=== PATIENT | female | born 1950 | race Caucasian/White ===

== ENCOUNTER 2016-04-14 15:31 | Inpatient (IN) | payer OTHER ==
[~2016-04-14] VITALS: Ht 162.6 cm; Wt 114.8 kg
[~2016-04-14 15:31] MED LIST: ADULT LOW DOSE81 M1 PO; ADVAIR 250/501 DISK IH; ADVAIR 500/501 DISK IH; AMARYL4 MG PO; AMBIEN10 MG PO; AMBIEN5 MG PO; ASPIR 8181 MG PO; ASPIR-LOW81 MG PO; ASPIRIN E.C.81 M1 PO; ATORVASTATIN CA80 MG PO; AVELOX400 MG PO; AZITHROMYCIN500 M1 PO; Ambien PO; B-123000 MCG SL; BUSPAR5 MG PO; BUSPIRONE HCL5 MG PO; CALCIUM +D & M1 EAC1 PO; CALCIUM 500 +1 EACH PO; CALCIUM PO; CEFADROXIL1 GM PO; CEFTIN500 MG PO; CEFUROXIME500 MG PO; CELEXA40 MG PO; CLINDAMYCIN HC300 MG PO; CYANOCOBALAM1000 MCG PO; CYMBALTA60 MG PO; Citracal PO; DELTASONE10 MG PO; DESYREL12.5 MG PO; DIAZEPAM5 MG PO; ENDOCET 5-3251 EACH PO; FLUOXETINE HCL40 MG PO; FORTAMET500 M1 PO; FUROSEMIDE40 MG PO; GABAPENTIN600 MG PO; GLIMEPIRIDE2 MG PO; GLIMEPIRIDE4 MG PO; GLUCOPHAGE1000 MG PO; GLUCOPHAGE500 MG PO; HABITROL,NICODE21 MG TD; INCRUSE ELLI62.5 MCG IH; LASIX40 MG PO; LEVOFLOXACIN750 MG PO; LIDODERM 5% P1 PATCH TD; LIPITOR80 MG PO; LORTAB 5-325 M1 EACH PO; LYRICA75 MG PO; Lopid PO; METFORMIN HCL1000 MG PO; METFORMIN HCL500 MG PO; MYCOSTATIN15 GM TP; NABUMETONE750 MG PO; NASONEX17 GM BOTH NARES; NOVOLOG PE100 UNITS/ SC; NYSTATIN-TRIAMC15 GM TP; NYSTATIN15 GM TP; Neurontin PO; OMEPRAZOLE20 MG PO; OMEPRAZOLE40 M1 PO; ONE-A-DAY ESSE1 EAC1 PO; PERCOCET 5/31 TABLET PO; PERCOCET 7.51 TABLET PO; PRAVACHOL80 MG PO; PREDNISONE10 MG PO; PREDNISONE20 MG PO; PRILOSEC20 MG PO; PRILOSEC40 MG PO; PROAIR HFA8.5 GM IH; PROVENTIL HFA6.7 GM IH; PROVENTIL,2.5 MG/0.5 IH; PROVENTIL,2.5 MG/3 M IH; PROZAC40 MG PO; Prilosec PO; RELAFEN750 MG PO; ROBAXIN500 MG PO; Relafen PO; SPIRIVA1 INHALATI IH; TRAZODONE HCL50 MG PO; TRIAMCINOLONE A15 GM TP; TYLENOL EXTRA500 MG PO; VALIUM5 MG PO; VITAMIN D32000 UNIT PO; VITAMIN D35000 UNIT PO; VITAMIN D5000 INTUN PO; VITAMIN D5000 UNI1 PO; VITAMIN D5000 UNIT PO; VITAMIN D50000 UNI1 PO; ZESTRIL,PRINIVI40 M1 PO; ZESTRIL40 MG PO; ZESTRIL5 MG PO; ZOCOR20 MG PO; Zocor PO
[2016-04-14 16:08] LABS: HEMATOCRIT 38.3 % (36.0-46.0); MCH 27.4 PG (29.0-34.0); MCHC 32.1 G/DL (30.0-36.0); MCV 85.3 FL (83-99); MEAN PLAT.VOLUME 10.8 uM^3 (9.5-12.4); PLATELET COUNT 291 K/uL (156-360); RBC DIS.WIDTH-CV 16.3 % (11.8-14.6); RBC DIS.WIDTH-SD 50.8 % (39-53); RED BLOOD COUNT 4.49 M/uL (3.80-5.20); WHITE BLOOD COUNT 16.7 K/uL (4.1-10.2)
[2016-04-14 16:14] LABS: BASOPHIL COUNT 0.1 K/uL (0-0.1); EOSINOPHIL (%) 2.5 % (0-5); EOSINOPHIL COUNT 0.4 K/uL (0-0.3); IMMATURE GRANULOCYTE (%) 0.4 % (0.0-0.7); IMMATURE GRANULOCYTE COUNT 0.6 K/uL; LYMPHOCYTE COUNT 2.1 K/uL (1.0-2.8); MONOCYTE (%) 7.9 % (3-12); MONOCYTE COUNT 1.3 K/uL (0-0.8); NEUTROPHIL (%) 76.1 % (45-76); NEUTROPHIL COUNT 12.7 K/uL (1.8-6.4)
[2016-04-14 16:18] LABS: CHLORIDE 104 mEq/L (99-109); POTASSIUM 4.5 mEq/L (3.7-5.4); SODIUM 142 mEq/L (136-147)
[2016-04-14 16:19] LABS: GLUCOSE 129 mg/dL (70-99)
[2016-04-14 16:21] LABS: ANION GAP 11 MEQ/L (2-14)
[2016-04-14 16:23] LABS: GFR ESTIMATE (CALCULATED) > 59 mL/min/
[2016-04-14 16:24] LABS: UREA NITROGEN (BUN) 11 mg/dL (9-23)
[2016-04-14] MEDS ORDERED: LASIX40 MG PO (18:42)
[2016-04-14 19:07] LABS: D-DIMER ELISA 1.01 mg/L FEU (< 0.57)
[2016-04-14 21:00] VITALS: BP 130/74
[2016-04-14 21:39] LABS: POINT-OF-CARE METER ID UU14174225
[2016-04-14 21:40] VITALS: BP 132/69
[2016-04-15] VITALS (7 sets, daily range): BP systolic 116–153; BP diastolic 58–87
[2016-04-15 04:17] LABS: POINT-OF-CARE METER ID UU14174225
[2016-04-15 06:53] LABS: HEMATOCRIT 33.4 % (36.0-46.0); MCH 27.2 PG (29.0-34.0); MCHC 30.8 G/DL (30.0-36.0); MCV 88.4 FL (83-99); MEAN PLAT.VOLUME 11.2 uM^3 (9.5-12.4); PLATELET COUNT 244 K/uL (156-360); RBC DIS.WIDTH-CV 16.6 % (11.8-14.6); RBC DIS.WIDTH-SD 53.3 % (39-53); RED BLOOD COUNT 3.78 M/uL (3.80-5.20); WHITE BLOOD COUNT 14.3 K/uL (4.1-10.2)
[2016-04-15 07:16] LABS: ANION GAP 7 MEQ/L (2-14); CHLORIDE 106 MEQ/L (99-109); GFR ESTIMATE (CALCULATED) > 59 mL/min/; GLUCOSE 125 mg/dL (70-99); POTASSIUM 4.4 MEQ/L (3.7-5.4); SAMPLE HEMOLYSIS CHECK 0; SAMPLE ICTERIC CHECK 0; SAMPLE LIPEMIA CHECK 0; SODIUM 140 MEQ/L (136-147); UREA NITROGEN (BUN) 9 mg/dL (9-23)
[2016-04-15 08:13] LABS: BASOPHIL COUNT 0.1 K/uL (0-0.1); EOSINOPHIL COUNT 0.3 K/uL (0-0.3); HEMATOLOGY COMMENT 1 SMEAR COMPATIBLE; IMMATURE GRANULOCYTE (%) 0.5 % (0.0-0.7); IMMATURE GRANULOCYTE COUNT 0.1 K/uL; LYMPHOCYTE COUNT 2.5 K/uL (1.0-2.8); MONOCYTE (%) 14.3 % (3-12); MONOCYTE COUNT 2.1 K/uL (0-0.8); NEUTROPHIL (%) 65.3 % (45-76); NEUTROPHIL COUNT 9.3 K/uL (1.8-6.4); USER ID STC
[2016-04-15 11:13] LABS: POINT-OF-CARE METER ID UU14174225
[2016-04-15 16:43] LABS: POINT-OF-CARE METER ID UU14174225
[2016-04-15 20:56] LABS: POINT-OF-CARE METER ID UU14174225
[2016-04-16 04:05] VITALS: BP 110/64
[2016-04-16 07:26] VITALS: BP 126/65
[2016-04-16 07:26] LABS: ANION GAP 10 MEQ/L (2-14); CHLORIDE 103 MEQ/L (99-109); GFR ESTIMATE (CALCULATED) > 59 mL/min/; GLUCOSE 114 mg/dL (70-99); POTASSIUM 3.8 MEQ/L (3.7-5.4); SAMPLE HEMOLYSIS CHECK 0; SAMPLE ICTERIC CHECK 0; SAMPLE LIPEMIA CHECK 0; SODIUM 140 MEQ/L (136-147); UREA NITROGEN (BUN) 9 mg/dL (9-23)
[2016-04-16 07:28] LABS: HEMATOCRIT 31.6 % (36.0-46.0); MCH 26.7 PG (29.0-34.0); MCV 86.1 FL (83-99); MEAN PLAT.VOLUME 11.3 uM^3 (9.5-12.4); PLATELET COUNT 239 K/uL (156-360); RBC DIS.WIDTH-CV 16.1 % (11.8-14.6); RBC DIS.WIDTH-SD 50.4 % (39-53); RED BLOOD COUNT 3.67 M/uL (3.80-5.20); WHITE BLOOD COUNT 16.2 K/uL (4.1-10.2)
[2016-04-16 07:55] LABS: BASOPHIL COUNT 0.1 K/uL (0-0.1); EOSINOPHIL (%) 1.2 % (0-5); EOSINOPHIL COUNT 0.2 K/uL (0-0.3); IMMATURE GRANULOCYTE (%) 0.4 % (0.0-0.7); IMMATURE GRANULOCYTE COUNT 0.1 K/uL; LYMPHOCYTE COUNT 1.8 K/uL (1.0-2.8); MONOCYTE (%) 16.8 % (3-12); MONOCYTE COUNT 2.7 K/uL (0-0.8); NEUTROPHIL (%) 70.4 % (45-76); NEUTROPHIL COUNT 11.4 K/uL (1.8-6.4)
[2016-04-16 09:18] LABS: ABS NEUTROPHIL COUNT 12.81; EOSINOPHIL ABS CT 0.49; PLAT.SUFFICIENCY ADEQUATE; USER ID STC
[2016-04-16 12:00] VITALS: BP 129/66
[2016-04-16 12:18] LABS: POINT-OF-CARE METER ID UU14174225
[2016-04-16 15:59] VITALS: BP 122/70
[2016-04-16 20:00] VITALS: BP 110/58
[2016-04-17] VITALS: BP 127/65
[2016-04-17 04:00] VITALS: BP 103/73
[2016-04-17 07:20] LABS: HEMATOCRIT 29.7 % (36.0-46.0); MCH 27.1 PG (29.0-34.0); MCHC 31.3 G/DL (30.0-36.0); MCV 86.6 FL (83-99); MEAN PLAT.VOLUME 11.3 uM^3 (9.5-12.4); PLATELET COUNT 224 K/uL (156-360); RBC DIS.WIDTH-CV 16.5 % (11.8-14.6); RBC DIS.WIDTH-SD 52.3 % (39-53); RED BLOOD COUNT 3.43 M/uL (3.80-5.20); WHITE BLOOD COUNT 13.2 K/uL (4.1-10.2)
[2016-04-17 07:44] LABS: ANION GAP 8 MEQ/L (2-14); CHLORIDE 101 MEQ/L (99-109); GFR ESTIMATE (CALCULATED) > 59 mL/min/; GLUCOSE 120 mg/dL (70-99); POTASSIUM 4.1 MEQ/L (3.7-5.4); SAMPLE HEMOLYSIS CHECK 1; SAMPLE ICTERIC CHECK 0; SAMPLE LIPEMIA CHECK 0; SODIUM 135 MEQ/L (136-147); UREA NITROGEN (BUN) 13 mg/dL (9-23)
[2016-04-17 08:00] VITALS: BP 104/61
[2016-04-17 09:08] LABS: EOSINOPHIL (%) 2.6 % (0-5); EOSINOPHIL COUNT 0.4 K/uL (0-0.3); HEMATOLOGY COMMENT 1 REV; IMMATURE GRANULOCYTE (%) 0.4 % (0.0-0.7); IMMATURE GRANULOCYTE COUNT 0.1 K/uL; LYMPHOCYTE COUNT 2.1 K/uL (1.0-2.8); MONOCYTE (%) 15.2 % (3-12); NEUTROPHIL (%) 65.4 % (45-76); NEUTROPHIL COUNT 8.6 K/uL (1.8-6.4); USER ID NJR
[2016-04-17 11:59] LABS: POINT-OF-CARE METER ID UU14174225
[2016-04-17 12:00] VITALS: BP 84/56
[2016-04-17 16:09] LABS: POINT-OF-CARE METER ID UU14174225
[2016-04-17 16:21] VITALS: BP 114/61
[2016-04-17 20:04] VITALS: BP 116/63
[2016-04-18] VITALS: BP 99/52
[2016-04-18 04:00] VITALS: BP 150/69
[2016-04-18 06:05] LABS: HEMATOCRIT 32.8 % (36.0-46.0); MCH 26.6 PG (29.0-34.0); MCHC 30.8 G/DL (30.0-36.0); MCV 86.5 FL (83-99); MEAN PLAT.VOLUME 10.8 uM^3 (9.5-12.4); PLATELET COUNT 282 K/uL (156-360); RBC DIS.WIDTH-CV 16.2 % (11.8-14.6); RBC DIS.WIDTH-SD 51.6 % (39-53); RED BLOOD COUNT 3.79 M/uL (3.80-5.20); WHITE BLOOD COUNT 11.7 K/uL (4.1-10.2)
[2016-04-18 06:17] LABS: BASOPHIL COUNT 0.1 K/uL (0-0.1); EOSINOPHIL (%) 4.1 % (0-5); EOSINOPHIL COUNT 0.5 K/uL (0-0.3); IMMATURE GRANULOCYTE (%) 0.6 % (0.0-0.7); IMMATURE GRANULOCYTE COUNT 0.1 K/uL; MONOCYTE COUNT 1.3 K/uL (0-0.8); NEUTROPHIL (%) 66.3 % (45-76); NEUTROPHIL COUNT 7.8 K/uL (1.8-6.4)
[2016-04-18 06:25] LABS: ANION GAP 8 MEQ/L (2-14); CHLORIDE 101 MEQ/L (99-109); GFR ESTIMATE (CALCULATED) > 59 mL/min/; GLUCOSE 117 mg/dL (70-99); POTASSIUM 4.1 MEQ/L (3.7-5.4); SAMPLE HEMOLYSIS CHECK 0; SAMPLE ICTERIC CHECK 0; SAMPLE LIPEMIA CHECK 0; SODIUM 137 MEQ/L (136-147); UREA NITROGEN (BUN) 14 mg/dL (9-23)
[2016-04-18 07:54] VITALS: BP 113/65
[2016-04-18 11:05] VITALS: BP 109/51
[2016-04-18 12:45] LABS: POINT-OF-CARE METER ID UU14174225
[2016-04-18 15:25] VITALS: BP 125/50
[2016-04-18 20:00] VITALS: BP 138/60
[2016-04-19] VITALS: BP 143/67
[2016-04-19 04:00] VITALS: BP 134/61
[2016-04-19 07:50] VITALS: BP 151/67
[2016-04-19] MEDS ORDERED: CLINDAMYCIN HC300 MG PO (11:11)
[2016-04-19] MEDS ORDERED: FLORASTOR250 MG PO (11:11)
[2016-04-19] MEDS ORDERED: OXYCODONE HCL5 MG PO (11:11)
[2016-04-19 11:29] VITALS: BP 135/79
[2016-04-19 15:23] VITALS: BP 132/68
== END 2016-04-19 17:11 | disposition home health service (06) | DRG 871 ==
LOC: EME 15:31 → 5SOUTH 18:26 → EDOF 18:26 → 5SOUTH 20:19
PROVIDERS: Emergency Medicine; Internal Medicine
DX: A41.9 Sepsis, unspecified organism (principal); J96.01 Acute respiratory failure with hypoxia; L03.115 Cellulitis of right lower limb; J44.1 Chronic obstructive pulmonary disease with (acute) exacerbation; Z68.41 Body mass index [BMI] 40.0-44.9, adult; E66.2 Morbid (severe) obesity with alveolar hypoventilation; F17.210 Nicotine dependence, cigarettes, uncomplicated; E11.65 Type 2 diabetes mellitus with hyperglycemia; I27.2 Other secondary pulmonary hypertension; I10 Essential (primary) hypertension; E78.00 Pure hypercholesterolemia, unspecified; K21.9 Gastro-esophageal reflux disease without esophagitis; F32.9 Major depressive disorder, single episode, unspecified; F41.9 Anxiety disorder, unspecified; I70.203 Unspecified atherosclerosis of native arteries of extremities, bilateral legs; I07.1 Rheumatic tricuspid insufficiency; M85.80 Other specified disorders of bone density and structure, unspecified site
CPT/HCPCS: 71020; 71275; 73610; 73630; 73700; 80048; 80202; 81003; 82565; 82948; 83605; 84520; 85025; 85379; 87040; 93005; 93306; 93925; 93970; 94640; 94640 76; 94799; 99202; 99281; 99285; J0696; J1644; J1815; J2270; J2405; J3370; J7050

== ENCOUNTER 2016-08-14 21:28 | Emergency (ER) | payer OTHER ==
[~2016-08-14] VITALS: Ht 157.5 cm; Wt 105.9 kg
[~2016-08-14 21:28] MED LIST changes: +FLORASTOR250 MG PO; +OXYCODONE HCL5 MG PO
[2016-08-14 23:22] VITALS: BP 132/81
== END 2016-08-14 23:16 | disposition home or self-care (01) ==
LOC: EME 21:28
DX: F41.0 Panic disorder [episodic paroxysmal anxiety] (principal); F17.200 Nicotine dependence, unspecified, uncomplicated; T21.13XA Burn of first degree of upper back, initial encounter; X98.8XXA Assault by other hot objects, initial encounter; Y07.499 Other family member, perpetrator of maltreatment and neglect; F32.9 Major depressive disorder, single episode, unspecified; J44.9 Chronic obstructive pulmonary disease, unspecified; I10 Essential (primary) hypertension; K21.9 Gastro-esophageal reflux disease without esophagitis; E11.40 Type 2 diabetes mellitus with diabetic neuropathy, unspecified; G89.29 Other chronic pain
CPT/HCPCS: 99281; 99283

== ENCOUNTER 2016-08-21 21:50 | Emergency (ER) | payer OTHER ==
[~2016-08-21] VITALS: Ht 157.5 cm; Wt 105.9 kg
[2016-08-21] MEDS ORDERED: NORCO 5/3251 TABLET PO (23:27)
[2016-08-21] MEDS ORDERED: LIDODERM 5% P1 PATCH TD (23:27)
[2016-08-22 00:28] VITALS: BP 144/85
== END 2016-08-22 00:45 | disposition home or self-care (01) ==
LOC: EME 21:50
DX: M62.830 Muscle spasm of back (principal); S22.31XA Fracture of one rib, right side, initial encounter for closed fracture; M25.512 Pain in left shoulder; W05.0XXA Fall from non-moving wheelchair, initial encounter; Y92.009 Unspecified place in unspecified non-institutional (private) residence as the place of occurrence of the external cause; K21.9 Gastro-esophageal reflux disease without esophagitis; E11.9 Type 2 diabetes mellitus without complications; I10 Essential (primary) hypertension; J44.9 Chronic obstructive pulmonary disease, unspecified; F17.200 Nicotine dependence, unspecified, uncomplicated
CPT/HCPCS: 71101; 73030; 99281; 99284

== ENCOUNTER 2016-10-06 15:30 | Inpatient (IN) | payer OTHER ==
[~2016-10-06] VITALS: Ht 157.5 cm; Wt 108.1 kg
[~2016-10-06 15:30] MED LIST changes: +NORCO 5/3251 TABLET PO
[2016-10-06 16:00] LABS: HEMATOCRIT 45.9 % (36.0-46.0); MCH 29.3 PG (29.0-34.0); MCHC 33.6 G/DL (30.0-36.0); MCV 87.4 FL (83-99); MEAN PLAT.VOLUME 10.6 uM^3 (9.5-12.4); PLATELET COUNT 260 K/uL (156-360); RBC DIS.WIDTH-CV 16.2 % (11.8-14.6); RBC DIS.WIDTH-SD 51.7 % (39-53); RED BLOOD COUNT 5.25 M/uL (3.80-5.20); WHITE BLOOD COUNT 17.4 K/uL (4.1-10.2)
[2016-10-06 16:09] LABS: CHLORIDE 99 mEq/L (99-109); POTASSIUM 4.3 mEq/L (3.7-5.4); SODIUM 136 mEq/L (136-147)
[2016-10-06 16:11] LABS: GLUCOSE 168 mg/dL (70-99)
[2016-10-06 16:12] LABS: ANION GAP 10 MEQ/L (2-14)
[2016-10-06 16:14] LABS: GFR ESTIMATE (CALCULATED) > 59 mL/min/
[2016-10-06 16:15] LABS: UREA NITROGEN (BUN) 11 mg/dL (9-23)
[2016-10-06] MEDS ORDERED: RELAFEN750 MG PO (19:21)
[2016-10-06] MEDS ORDERED: TRAMADOL HCL50 MG PO (19:21)
[2016-10-06] MEDS ORDERED: AMBIEN5 MG PO (19:21)
[2016-10-06] MEDS ORDERED: LYRICA75 MG PO (19:22)
[2016-10-06] MEDS ORDERED: TRAZODONE HCL50 MG PO (19:22)
[2016-10-06] MEDS ORDERED: METFORMIN HCL500 MG PO (19:22)
[2016-10-06] MEDS ORDERED: ATORVASTATIN CA80 MG PO (19:23)
[2016-10-06] MEDS ORDERED: VENTOLIN HFA18 GM IH (19:23)
[2016-10-06] MEDS ORDERED: LISINOPRIL5 MG PO (19:23)
[2016-10-06] MEDS ORDERED: INCRUSE ELLI62.5 MCG IH (19:23)
[2016-10-06] MEDS ORDERED: ASPIR 8181 M1 PO (19:24)
[2016-10-06 22:40] LABS: TOTAL BILIRUBIN 0.6 mg/dL (0.0-1.0)
[2016-10-06 22:41] LABS: ALKALINE PHOSPHATASE 75 IU/L (3-129)
[2016-10-06 22:44] LABS: DIRECT BILIRUBIN 0.2 mg/dL (0.0-0.3)
[2016-10-07] VITALS (7 sets, daily range): BP systolic 106–152; BP diastolic 55–85
[2016-10-07 06:20] LABS: POINT-OF-CARE METER ID UU14162508
[2016-10-07 08:51] LABS: BASOPHIL COUNT 0.1 K/uL (0-0.1); EOSINOPHIL (%) 0.4 % (0-5); EOSINOPHIL COUNT 0.1 K/uL (0-0.3); HEMATOCRIT 41.8 % (36.0-46.0); IMMATURE GRANULOCYTE (%) 0.5 % (0.0-0.7); IMMATURE GRANULOCYTE COUNT 0.1 K/uL; INSTRUMENT ABS NEUTROPHIL CT 10.2 K/uL; LYMPHOCYTE COUNT 1.7 K/uL (1.0-2.8); MCH 28.9 PG (29.0-34.0); MCHC 32.5 G/DL (30.0-36.0); MCV 88.7 FL (83-99); MEAN PLAT.VOLUME 10.3 uM^3 (9.5-12.4); MONOCYTE (%) 12.7 % (3-12); MONOCYTE COUNT 1.8 K/uL (0-0.8); NEUTROPHIL (%) 73.6 % (45-76); NEUTROPHIL COUNT 10.2 K/uL (1.8-6.4); PLATELET COUNT 208 K/uL (156-360); RBC DIS.WIDTH-CV 16.1 % (11.8-14.6); RBC DIS.WIDTH-SD 53.1 % (39-53); RED BLOOD COUNT 4.71 M/uL (3.80-5.20); WHITE BLOOD COUNT 13.9 K/uL (4.1-10.2)
[2016-10-07 08:59] LABS: CHLORIDE 101 mEq/L (99-109); SODIUM 136 mEq/L (136-147)
[2016-10-07 09:01] LABS: GLUCOSE 167 mg/dL (70-99)
[2016-10-07 09:02] LABS: ANION GAP 7 MEQ/L (2-14)
[2016-10-07 09:05] LABS: GFR ESTIMATE (CALCULATED) > 59 mL/min/; UREA NITROGEN (BUN) 7 mg/dL (9-23)
[2016-10-07 11:41] LABS: POINT-OF-CARE METER ID UU14162508
[2016-10-07 12:03] LABS: ERTH.SED.RATE 42 MM/HR (0-30)
[2016-10-07 12:08] LABS: C-REACTIVE PROTEIN 180.3 MG/L (0-10); SAMPLE HEMOLYSIS CHECK 0; SAMPLE ICTERIC CHECK 0; SAMPLE LIPEMIA CHECK 0
[2016-10-07 15:06] LABS: Estimated Average Glucose 171 mg/dL (70-123); HEMOGLOBIN A1c (GLYCOHEMOGLOB) 7.6 % HGB (Below 5.7)
[2016-10-07 15:52] LABS: POINT-OF-CARE METER ID UU14162508
[2016-10-07 22:43] LABS: METH RESISTANT S AUREUS PCR NEGATIVE (NEGATIVE)
[2016-10-07 22:44] LABS: PROBE CHECK PASS; SPECIMEN PROCESSING CONTROL PASS
[2016-10-08 00:28] LABS: ADD MIUA? YES; BILIRUBIN NEGATIVE; BLOOD NEGATIVE; COLOR YELLOW ((YELLOW)); GLUCOSE (STRIP) 50; KETONES NEGATIVE; LEUKOCYTES SMALL; NITRITE NEGATIVE; PROTEIN (STRIP) NEGATIVE; UROBILINOGEN 0.2 MG/DL (0.2-1.0)
[2016-10-08 00:32] LABS: BACTERIA RARE /HPF; EPITHELIAL CELLS RARE /HPF; MUCUS TRACE /LPF; RED BLOOD CELLS 0-5 /HPF (0-5); WHITE BLOOD CELLS 20-30 /HPF (0-5)
[2016-10-08 02:54] VITALS: BP 155/91
[2016-10-08 07:10] VITALS: BP 154/82
[2016-10-08 07:10] LABS: HEMATOCRIT 37.4 % (36.0-46.0); MCH 29.7 PG (29.0-34.0); MCHC 33.2 G/DL (30.0-36.0); MCV 89.7 FL (83-99); MEAN PLAT.VOLUME 11.3 uM^3 (9.5-12.4); PLATELET COUNT 190 K/uL (156-360); RBC DIS.WIDTH-CV 16.4 % (11.8-14.6); RBC DIS.WIDTH-SD 53.6 % (39-53); RED BLOOD COUNT 4.17 M/uL (3.80-5.20); WHITE BLOOD COUNT 12.6 K/uL (4.1-10.2)
[2016-10-08 07:29] LABS: ANION GAP 8 MEQ/L (2-14); CHLORIDE 104 MEQ/L (99-109); POTASSIUM 3.7 MEQ/L (3.7-5.4); SAMPLE HEMOLYSIS CHECK 0; SAMPLE ICTERIC CHECK 0; SAMPLE LIPEMIA CHECK 0; SODIUM 137 MEQ/L (136-147)
[2016-10-08 07:34] LABS: GFR ESTIMATE (CALCULATED) > 59 mL/min/; GLUCOSE 145 mg/dL (70-99); UREA NITROGEN (BUN) 9 mg/dL (9-23)
[2016-10-08 16:00] VITALS: BP 174/88
[2016-10-08 19:15] VITALS: BP 132/66
[2016-10-08 23:51] VITALS: BP 140/78
[2016-10-09 03:48] VITALS: BP 138/72
[2016-10-09 07:00] VITALS: BP 131/83
[2016-10-09 09:08] LABS: HEMATOCRIT 37.3 % (36.0-46.0); MCH 30.3 PG (29.0-34.0); MCHC 33.5 G/DL (30.0-36.0); MCV 90.3 FL (83-99); MEAN PLAT.VOLUME 11.2 uM^3 (9.5-12.4); PLATELET COUNT 188 K/uL (156-360); RBC DIS.WIDTH-CV 16.1 % (11.8-14.6); RBC DIS.WIDTH-SD 53.3 % (39-53); RED BLOOD COUNT 4.13 M/uL (3.80-5.20); WHITE BLOOD COUNT 10.2 K/uL (4.1-10.2)
[2016-10-09 15:26] VITALS: BP 134/75
[2016-10-09 15:56] LABS: POINT-OF-CARE METER ID UU14162508
[2016-10-09 23:15] VITALS: BP 169/78
[2016-10-10 06:50] VITALS: BP 174/86
[2016-10-10 07:19] LABS: HEMATOCRIT 35.2 % (36.0-46.0); MCH 29.1 PG (29.0-34.0); MCHC 32.7 G/DL (30.0-36.0); MCV 89.1 FL (83-99); MEAN PLAT.VOLUME 11.3 uM^3 (9.5-12.4); PLATELET COUNT 235 K/uL (156-360); RBC DIS.WIDTH-SD 52.4 % (39-53); RED BLOOD COUNT 3.95 M/uL (3.80-5.20); WHITE BLOOD COUNT 7.3 K/uL (4.1-10.2)
[2016-10-10] MEDS ORDERED: HYDROCODON-ACE1 EAC7 PO (10:16)
[2016-10-10] MEDS ORDERED: NAPROXEN500 MG PO (10:16)
[2016-10-10] MEDS ORDERED: KETOCONAZOLE60 GM TP (10:16)
[2016-10-10] MEDS ORDERED: KEFLEX500 MG PO (10:18)
== END 2016-10-10 11:41 | disposition home or self-care (01) | DRG 872 ==
LOC: EME 15:30 → 2EAST 21:53 → EDOF 21:53 → 2EAST 22:08 → EDOF 22:11 → 2EAST 10-07 01:26
PROVIDERS: Emergency Medicine; Hospitalist; Internal Medicine; Internal Medicine Infectious Disease
DX: A41.9 Sepsis, unspecified organism (principal); R65.20 Severe sepsis without septic shock; L03.116 Cellulitis of left lower limb; M76.72 Peroneal tendinitis, left leg; J44.0 Chronic obstructive pulmonary disease with (acute) lower respiratory infection; J20.9 Acute bronchitis, unspecified; M11.261 Other chondrocalcinosis, right knee; E11.9 Type 2 diabetes mellitus without complications; E78.5 Hyperlipidemia, unspecified; I10 Essential (primary) hypertension; E86.0 Dehydration; E87.2 Acidosis; I27.2 Other secondary pulmonary hypertension; K21.9 Gastro-esophageal reflux disease without esophagitis; M17.11 Unilateral primary osteoarthritis, right knee; F17.210 Nicotine dependence, cigarettes, uncomplicated; E66.01 Morbid (severe) obesity due to excess calories; Z68.41 Body mass index [BMI] 40.0-44.9, adult; Z86.011 Personal history of benign neoplasm of the brain; Z79.82 Long term (current) use of aspirin; Z79.84 Long term (current) use of oral hypoglycemic drugs
CPT/HCPCS: 71020; 73564; 73590; 73630; 73701; 80048; 80076; 80202; 81003; 82565; 82948; 83036; 83605; 84520; 85025; 85027; 85651; 86140; 87040; 87641; 93971; 94640; 94640 76; 94799; 99202; 99281; 99285; J0690; J1644; J1815; J2270; J2543; J3370; J7030; J7050

== ENCOUNTER 2017-04-25 12:25 | Emergency (ER) | payer OTHER ==
[~2017-04-25] VITALS: Ht 157.5 cm; Wt 109.0 kg
[~2017-04-25 12:25] MED LIST changes: +ASPIR 8181 M1 PO; +HYDROCODON-ACE1 EAC7 PO; +KEFLEX500 MG PO; +KETOCONAZOLE60 GM TP; +LISINOPRIL5 MG PO; +NAPROXEN500 MG PO; +TRAMADOL HCL50 MG PO; +VENTOLIN HFA18 GM IH
[2017-04-25 14:20] LABS: HEMATOCRIT 44.5 % (36.0-46.0); HEMOGLOBIN 15.3 G/DL (11.9-15.5); MCHC 34.4 G/DL (30.0-36.0); MCV 90.3 FL (83-99); PLATELET COUNT 276 K/uL (156-360); RBC DIS.WIDTH-CV 13.5 % (11.8-14.6); RBC DIS.WIDTH-SD 44.9 % (39-53); RED BLOOD COUNT 4.93 M/uL (3.80-5.20); WHITE BLOOD COUNT 15.4 K/uL (4.1-10.2)
[2017-04-25 14:28] LABS: CHLORIDE 103 mEq/L (99-109); POTASSIUM 3.7 mEq/L (3.7-5.4); SODIUM 136 mEq/L (136-147)
[2017-04-25 14:30] LABS: GLUCOSE 145 mg/dL (70-99)
[2017-04-25 14:34] LABS: CREATININE 0.8 mg/dL (0.6-1.3); GFR ESTIMATE (CALCULATED) > 59 mL/min/
[2017-04-25 14:36] LABS: UREA NITROGEN (BUN) 8 mg/dL (9-23)
[2017-04-25] MEDS ORDERED: KEFLEX500 MG PO (16:51)
[2017-04-25 17:16] VITALS: BP 136/77
== END 2017-04-25 18:05 | disposition home or self-care (01) ==
LOC: EME 12:25
PROVIDERS: Nurse Practitioner Family
DX: L03.115 Cellulitis of right lower limb (principal); S83.91XA Sprain of unspecified site of right knee, initial encounter; J44.9 Chronic obstructive pulmonary disease, unspecified; E11.40 Type 2 diabetes mellitus with diabetic neuropathy, unspecified; I10 Essential (primary) hypertension; K21.9 Gastro-esophageal reflux disease without esophagitis; F32.9 Major depressive disorder, single episode, unspecified; F41.9 Anxiety disorder, unspecified; F17.200 Nicotine dependence, unspecified, uncomplicated; Z90.49 Acquired absence of other specified parts of digestive tract; Z79.84 Long term (current) use of oral hypoglycemic drugs; Z79.82 Long term (current) use of aspirin
CPT/HCPCS: 73564; 80048; 85027; 93971; 99281; 99285; G8978 GP CJ; G8979 GP CI

== ENCOUNTER 2017-06-18 15:31 | Emergency (ER) | payer OTHER ==
[~2017-06-18] VITALS: Ht 157.5 cm; Wt 105.0 kg
[2017-06-18 16:58] LABS: HEMATOCRIT 41.5 % (36.0-46.0); HEMOGLOBIN 14.3 G/DL (11.9-15.5); MCH 30.9 PG (29.0-34.0); MCHC 34.5 G/DL (30.0-36.0); MCV 89.6 FL (83-99); PLATELET COUNT 235 K/uL (156-360); RBC DIS.WIDTH-SD 46.1 % (39-53); RED BLOOD COUNT 4.63 M/uL (3.80-5.20); WHITE BLOOD COUNT 11.2 K/uL (4.1-10.2)
[2017-06-18 17:06] LABS: CHLORIDE 104 mEq/L (99-109); POTASSIUM 4.4 mEq/L (3.7-5.4); SODIUM 140 mEq/L (136-147)
[2017-06-18 17:07] LABS: GLUCOSE 117 mg/dL (70-99)
[2017-06-18 17:11] LABS: CREATININE 0.8 mg/dL (0.6-1.3); GFR ESTIMATE (CALCULATED) > 59 mL/min/
[2017-06-18 17:12] LABS: UREA NITROGEN (BUN) 11 mg/dL (9-23)
[2017-06-18 17:45] LABS: APPEARANCE CLEAR ((CLEAR)); BILIRUBIN NEGATIVE; BLOOD NEGATIVE; COLOR YELLOW ((YELLOW)); GLUCOSE (STRIP) NEGATIVE; KETONES NEGATIVE; LEUKOCYTES TRACE; NITRITE NEGATIVE; PROTEIN (STRIP) 30; SPECIFIC GRAVITY 1.019 (1.000-1.030); UROBILINOGEN 0.2 MG/DL (0.2-1.0)
[2017-06-18 17:56] LABS: BACTERIA RARE /HPF; EPITHELIAL CELLS 1+ /HPF; HYALINE CASTS 0-5 /LPF; MUCUS NONE SEEN /LPF; RED BLOOD CELLS 0-5 /HPF (0-5); UCUL ADDED? YES
[2017-06-18] MEDS ORDERED: ULTRAM50 MG PO (18:17)
[2017-06-18] MEDS ORDERED: PERCOCET 5/31 TABLET PO (18:20)
[2017-06-18 18:44] VITALS: BP 157/79
== END 2017-06-18 20:07 | disposition home or self-care (01) ==
LOC: EME 15:31
PROVIDERS: Emergency Medicine
DX: M54.5 Low back pain (principal); R06.02 Shortness of breath; I10 Essential (primary) hypertension; J44.9 Chronic obstructive pulmonary disease, unspecified; E11.9 Type 2 diabetes mellitus without complications; Z79.84 Long term (current) use of oral hypoglycemic drugs; Z79.82 Long term (current) use of aspirin; F17.200 Nicotine dependence, unspecified, uncomplicated
CPT/HCPCS: 71046; 80048; 81003; 85027; 87086; 99281; 99284

== ENCOUNTER 2017-07-29 10:43 | Emergency (ER) | payer OTHER ==
[~2017-07-29] VITALS: Ht 157.5 cm; Wt 104.5 kg
[~2017-07-29 10:43] MED LIST changes: +ULTRAM50 MG PO
[2017-07-29 11:31] LABS: HEMATOCRIT 44.5 % (36.0-46.0); HEMOGLOBIN 15.8 G/DL (11.9-15.5); MCHC 35.5 G/DL (30.0-36.0); MCV 87.3 FL (83-99); PLATELET COUNT 218 K/uL (156-360); RBC DIS.WIDTH-CV 14.1 % (11.8-14.6); RBC DIS.WIDTH-SD 45.5 % (39-53); WHITE BLOOD COUNT 15.7 K/uL (4.1-10.2)
[2017-07-29 11:41] LABS: CHLORIDE 103 mEq/L (99-109); POTASSIUM 3.6 mEq/L (3.7-5.4); SODIUM 138 mEq/L (136-147)
[2017-07-29 11:43] LABS: GLUCOSE 140 mg/dL (70-99)
[2017-07-29 11:47] LABS: CREATININE 0.8 mg/dL (0.6-1.3); GFR ESTIMATE (CALCULATED) > 59 mL/min/
[2017-07-29 11:48] LABS: UREA NITROGEN (BUN) 8 mg/dL (9-23)
[2017-07-29] MEDS ORDERED: INDOCIN50 MG PO (13:39)
[2017-07-29] MEDS ORDERED: KEFLEX500 MG PO (13:39)
[2017-07-29 13:58] VITALS: BP 119/76
== END 2017-07-29 15:23 | disposition home or self-care (01) ==
LOC: EME 10:43
PROVIDERS: Nurse Practitioner Acute Care
DX: M10.9 Gout, unspecified (principal); L03.116 Cellulitis of left lower limb; R22.42 Localized swelling, mass and lump, left lower limb; E11.40 Type 2 diabetes mellitus with diabetic neuropathy, unspecified; Z79.84 Long term (current) use of oral hypoglycemic drugs; I10 Essential (primary) hypertension; J44.9 Chronic obstructive pulmonary disease, unspecified; F17.200 Nicotine dependence, unspecified, uncomplicated; F32.9 Major depressive disorder, single episode, unspecified; F41.9 Anxiety disorder, unspecified; K21.9 Gastro-esophageal reflux disease without esophagitis
CPT/HCPCS: 73610; 80048; 85027; 93971; 99281; 99285